=== PATIENT | male | born 1995 | race Caucasian/White ===

== ENCOUNTER 2017-03-24 06:54 | Emergency (ER) | payer BC ==
[2017-03-24 07:15] VITALS: TEMP 98
[2017-03-24 07:32] LABS: BASOPHILS % (AUTO) 1 % (0-3); EOSINOPHILS % (AUTO) 5 % (0-9); HEMATOCRIT 47 % (39-53); MONOCYTES % (AUTO) 9.8 % (0-12); NEUTROPHILS % (AUTO) 50.5 % (37-80)
[2017-03-24 07:35] LABS: MEAN CORPUSCULAR VOLUME 80 fL (80-100)
[2017-03-24] MEDS ORDERED: KETOROLAC TROMETHAMINE 30 MG/ML SOL IM ONE (07:41)
[2017-03-24] MEDS ORDERED: KETOROLAC TROMETHAMINE 30 MG/ML SOL ONE (07:42)
[2017-03-24 09:19] VITALS: BP 135/82; PULSE 84; RESP 16; O2SAT 97
== END 2017-03-24 07:59 | disposition home or self-care (01) ==
LOC: ED 06:54
DX: R07.81 Pleurodynia (principal); R91.1 Solitary pulmonary nodule
CPT/HCPCS: 99284 ×3; 71020; 85025; 93005; J1885; 36415; 96372

== ENCOUNTER 2018-01-24 15:45 | Emergency (ER) | payer BC ==
[2018-01-24] MEDS ORDERED: SUMATRIPTAN SUCCINATE 6 MG/0.5 ML SOL SC ONE ×2 (16:11→16:50)
[2018-01-24 17:05] VITALS: RESP 16; TEMP 96.7; O2SAT 98
[2018-01-24 17:48] VITALS: BP 124/72; PULSE 88
== END 2018-01-24 17:40 | disposition home or self-care (01) ==
LOC: ED 15:45
DX: G43.909 Migraine, unspecified, not intractable, without status migrainosus (principal)
CPT/HCPCS: 70450; 96372; 99283; J3030